=== PATIENT | male | born 1960 | race African-American/Black ===

== ENCOUNTER 2016-09-03 02:43 | Emergency (ER) | payer MEDICAID, OTHER ==
[~2016-09-03] VITALS: Ht 172.7 cm; Wt 86.5 kg
[~2016-09-03 02:43] MED LIST: BISA-57 PO; CALC500T99 PO; CHLO15MO MM; CHOL100062 PO; CITA20TA6 PO; CLON-379 PO; DARU800T PO; DOLU50TA PO; HYDR-3498 PO; IBUP800T25 PO; KENC1 TOP; LOSA100T47 PO; MORP15TA92 PO; NORV100 PO; OXYC15TA PO; SILD50TA36 PO; TS100V10 IM; [UNRECOGNIZED DRUG - CODE] TP
[2016-09-03 02:48] VITALS: Ht 172.7 cm; Wt 86.5 kg
[2016-09-03 03:24] VITALS: BP 139/79; PULSE 73; RESP 18
[2016-09-03] MEDS ORDERED: HYDROmorphONE 1 MG/ML SYG IM STA (03:27)
[2016-09-03] MEDS ORDERED: HYDR-906 PO (03:29)
--- NOTE | 2016-09-03 05:51 | ERD ---
ER Documentation Chief Complaint Date/Time DATE: 09/03/16 TIME: 05:49 Chief Complaint sickle cell pain-back pain HPI 56-year-old man presents with full body aches similar previous episodes, he states he has a history of sickle cell pain and ran out of his opioid analgesics. Patient is requesting hydromorphone as it usually controls his pain. Patient denies fevers or chills, no cough, no shortness of breath, no paresis or paresthesias, no abdominal pain, no chest pain or shortness of breath. Patient denies vomiting or diarrhea. ROS All systems reviewed and are negative except as per history of present illness. Medications Home Meds Active Scripts Hydrocodone/Acetaminophen ([place] 5-325 Tablet) 1 Each Tablet, 1 TAB PO TID Y for PAIN, #9 TAB Prov:DIANNE FRIEDMAN MD 09/03/16 Hydrocodone Bit-Acetaminophen* ([place]*) 5-325 Mg Tab, 1 TAB PO Q6 Y for PAIN, # 12 TAB Prov:LINA MONTESINOS DO 11/03/15 Clonidine Hcl* (Clonidine Hcl*) 0.1 Mg Tab, 0.1 MG PO Q4H Y for sbp>160, #30 TAB Prov:JULIANA DAVENPORT 08/20/14 Reported Medications Chlorhexidine Gluconate* (Peridex*) 480 Ml Mouthwash, 15 ML MM QID, ML 05/20/14 Bisacodyl* (Dulcolax*) 5 Mg Tablet., 1-2 TAB PO BID Y for CONSTIPATION, TAB 05/20/14 Hydroquinone/Avobenz/Octinox (Hydroquinone Longterm 4% Emulsion) 48.2 Gm Emulsn.gm., 1 APPLIC TP BID 05/20/14 Sildenafil Citrate* (Viagra*) 50 Mg Tablet, 50 MG PO 1 HR BEFORE ACITIVY Y for ERECTILE DYSFUNCTION, TAB 05/20/14 Triamcinolone Acetonide* (Kenalog*) 0.1%-15GM Cr, 1 APPLIC TOP TID, EA 05/20/14 Testosterone Cypionate* (Depo-Testosterone*) 100 Mg/Ml Vial, 100 MG IM EVERY 14 DAYS, VIAL 05/20/14 Oxycodone Hcl* (IR) (Oxycodone Hcl*) 15 Mg Tablet, 15 MG PO TID Y for PAIN, TAB 05/20/14 Morphine Sulfate* (Ms Contin*) 15 Mg Tablet.sa, 15 MG PO TID Y for PAIN, TAB.SA 05/20/14 Cholecalciferol* (Vitamin D3*) 1,000 Unit Tablet, 1000 UNIT PO DAILY, TAB 05/20/14 Calcium Carbonate ([id number]) 1 Tab Tablet, 1 TAB PO DAILY 05/20/14 Losartan Potassium* (Cozaar*) 100 Mg Tablet, 100 MG PO DAILY, TAB 05/20/14 Citalopram Hydrobromide* (Citalopram Hydrobromide*) 20 Mg Tablet, 60 MG PO DAILY , TAB 05/20/14 Ritonavir* (Norvir*) 100 Mg Capsule, 100 MG PO DAILY, CAP 05/20/14 Ibuprofen* (Ibuprofen*) 800 Mg Tab, 800 MG PO BID Y for PAIN, TAB 05/20/14 Dolutegravir Sodium (Tivicay) 50 Mg Tablet, 50 MG PO DAILY, TAB 05/20/14 Darunavir* (Prezista*) 800 Mg Tablet, 800 MG PO DAILY, TAB 05/20/14 Allergies Allergies: Coded Allergies: No Known Drug Allergies (Verified Allergy, Unknown, 05/20/14) PMhx/Soc Chronic pain syndrome, sickle cell disease, hypertension, HIV History of Surgery: Yes (CHOLYSYSTECTOMY, bladder sx?) Anesthesia Reaction: No Hx Neurological Disorder: No Hx Respiratory Disorders: No Hx Cardiac Disorders: Yes (htn) Hx Psychiatric Problems: No Hx Miscellaneous Medical Probl: Yes (HIV) Hx Alcohol Use: Yes (occasionally) Hx Substance Use: No Hx Tobacco Use: Yes (OCCATIONALLY) Smoking Status: Current some day smoker FmHx Family History: No diabetes Physical Exam Vitals Vital Signs Date Time Temp Pulse Resp B/P Pulse Ox O2 Delivery O2 Flow Rate FiO2 09/03/16 03:24 73 18 139/79 97 Room Air 09/03/16 02:48 99.3 61 20 142/86 97 Physical Exam GENERAL: Well-developed, well-nourished, well-hydrated, in no apparent distress , looks nontoxic in appearance HEENT: Moist mucous membranes, pink conjunctiva, no cervical spine tenderness or step-off deformities, no goiter, no jaundice or icterus, extraocular movements intact without pain. No submandibular induration, and no pharyngeal erythema NEURO: Alert and oriented 3, cranial nerves II through XII intact bilaterally, pupils equal round reactive to light, no focal deficits or facial asymmetry, sensation intact distally Strength 5/5 in upper and lower extremities bilaterally CARDIAC: Regular rate and rhythm, no murmurs rubs or gallops LUNGS: Clear bilaterally no wheezing crackles or stridor ABDOMEN: Soft nontender, no guarding, no rigidity, no rebound, no psoas sign no obturator sign. Normoactive bowel sounds SKIN: Warm and dry to touch, no abrasions, contusions, or hematomas, no lacerations, no ecchymosis, no target lesions, and without ulcers EXTREMITIES: No clubbing cyanosis or edema, calves are bilaterally symmetrical, no Homans sign, no popliteal cord sign. Distal pulses equal and bilateral PSYCH: Normal affect without agitation or irritability Results 24 hrs Current Medications Medications (Trade) Dose Ordered Sig/Shabbir Route PRN Reason Start Time Stop Time Status Last Admin Dose Admin Hydromorphone HCl (Dilaudid) 1 mg ONCE STAT IM 09/03/16 03:27 09/03/16 03:28 DC 09/03/16 03:31 Procedures/MDM Reassurance was provided and agreed to fill a prescription for him for analgesia until he could see his PMD and hematology oncologist for sickle cell pain management as an outpatient. I administered hydromorphone 1 mg intramuscular injection with good pain control. Differential diagnoses considered, included but not limited to acute coronary syndrome, pulmonary embolism, aortic dissection, abdominal aortic aneurysm, sepsis, stroke, meningitis, encephalitis, pneumonia, appendicitis, cholecystitis , bowel obstruction, pyelonephritis, nephrolithiasis, cystitis, as well as metabolic, hematologic, and electrolyte abnormalities. As well as abscess, cellulitis, fractures, and dislocations. Patient feels much better at this time, and vital signs are normal, symptoms have improved. I did give strict instructions to return to the ED if symptoms continue or worsen, patient will otherwise follow-up with primary care physician. Patient understood instructions and agreed to plan. Departure Diagnosis: Primary Impression: Sickle cell pain crisis Condition: Good Patient Instructions: Sickle Cell Pain Crisis DIANNE FRIEDMAN MD Sep 03, 2016 05:51
== END 2016-09-03 03:40 | disposition left against medical advice (07) ==
LOC: E/R 02:43
DX: D57.00 Hb-SS disease with crisis, unspecified (principal); F17.210 Nicotine dependence, cigarettes, uncomplicated; I10 Essential (primary) hypertension
CPT/HCPCS: 96372; J1170